=== PATIENT | female | born 1930 | race Caucasian/White ===

== ENCOUNTER → 2016-11-08 | Outpatient (CLI) | payer OTHER | LOC: CIMAGING 17:23 | PROVIDERS: ATTEND Internal Medicine Rheumatology | DX: J84.10 Pulmonary fibrosis, unspecified (principal); J98.4 Other disorders of lung | CPT/HCPCS: 71020-PO ==

== ENCOUNTER → 2016-11-29 | Outpatient (CLI) | payer OTHER | LOC: FIMAGING 14:38 | PROVIDERS: ATTEND Psychiatry & Neurology Neurology | DX: G30.1 Alzheimer's disease with late onset (principal); F02.80 Dementia in other diseases classified elsewhere, unspecified severity, without behavioral disturbance, psychotic disturbance, mood disturbance, and anxiety ==

== ENCOUNTER 2016-12-31 11:25 | Emergency (ER) | payer OTHER ==
--- NOTE | 2016-12-31 11:41 | UCPHY ---
H & P Time Seen by Provider: 12/31/16 11:41 Patient Type: New HPI/ROS: CHIEF COMPLAINT: Foot and ankle pain on the right HISTORY OF PRESENT ILLNESS: Fell on Saturday injuring right foot and ankle. Able to walk on it but painful. REVIEW OF SYSTEMS: No other injuries, a dose of bruising on the foot up to the ankle. No change in chronic respiratory symptoms. Not coughing and no chest pain. PAST MEDICAL HISTORY: Pulmonary fibrosis, hypertension, pacemaker with atrial flutter, Sjogren's and thyroid disease. Social history: Nonsmoker General Appearance: Alert and conversant, cooperative. Patient speaks in full sentences. Bruising over most of the foot extending up to the ankle. Tender laterally over 5th metatarsal in the right foot and over the lateral malleolus. Normal range of motion of the knee and the patient is ambulatory. Normal dorsalis pedis pulse and normal motor and sensory in the foot. No lacerations. Emergency Department course/MDM: X-rays reviewed with the patient and daughter. Boot placed. She is warned to follow up with her livestock breeder this week because of incidental hypoxemia noted on vital signs. However I do not think this requires emergent workup as she does not have any new symptoms over her baseline. Ambulatory as tolerated with orthopedic follow-up. Constitutional: Initial Vital Signs Temperature (C) 36.7 C 12/31/16 11:29 Heart Rate 77 12/31/16 11:29 Respiratory Rate 16 12/31/16 11:29 Blood Pressure 121/87 H 12/31/16 11:29 O2 Sat (%) 81 L 12/31/16 11:29 O2 Delivery Mode Nasal Cannula O2 (L/minute) 2 Allergies/Adverse Reactions: No Known Allergies Allergy (Verified 12/31/16 11:43) Home Medications: Medication Instructions Recorded Aspirin 12/31/16 Atorvastatin Calcium 12/31/16 Digoxin 12/31/16 Fosamax 10 MG 12/31/16 Glucosamine 12/31/16 Lexapro 12/31/16 Miralax 17 gm (*) 12/31/16 Prednisone 12/31/16 Synthroid 12/31/16 Toprol Xl 100 mg (*) 12/31/16 VITAMIN D 12/31/16 MDM/Departure - MDM Imaging Results: Right foot x-ray personally interpreted shows dancer's or Esteban fracture on the 5th metatarsal. Right ankle shows distal fibular fracture. Imaging: I viewed and interpreted images myself - Depart Disposition: Home, Routine, Self-Care Clinical Impression: Fracture of fifth metatarsal bone of right foot Qualifiers: Encounter type: initial encounter Fracture type: closed Fracture alignment: nondisplaced Qualified Code(s): S92.354A - Nondisplaced fracture of fifth metatarsal bone, right foot, initial encounter for closed fracture Condition: Good Instructions: Ankle Fracture (ED), Foot Fracture in Adults (ED) Additional Instructions: Wear boot at all times except when in the shower. Please follow up with Orthopedics within the next 1-2 weeks. Activity as tolerated. Please touch base with your livestock breeder Dr. Turner this week because your baseline oxygen saturations are in the 80s. Referrals: Chaya Mendoza MD [Primary Care Provider] - As per Instructions Juan M Mendoza MD [Medical Doctor] - As per Instructions - PQRS PQRS Measurement: 134: Depression screening and followup, PRIME MD-PHQ2 (12 years and older) Over the last 2 weeks, how often have you been bothered by any of the following problems? 1. Feeling down, depressed, or hopeless? 2. Little interest or pleasure in doing things? Patient answered no to both 1 and 2 130: Documentation of medications. Reviewed all patient medications, doses, route and frequency. 226: Do you smoke? No. 47: 65 and older: Advanced care planning. Patient designates surrogate decision maker as daughter. 51: 18 years old and older with diagnosis of COPD, spirometry performance. Patient has no history of COPD 52: 18 years old and older with COPD and symptoms of COPD or FEV1<60% predicted prescribed a B Agonist. Does not have history of COPD.
[2016-12-31 11:44] VITALS: TEMP 98.1
[2016-12-31 12:50] VITALS: BP 127/90; PULSE 74; RESP 18; O2SAT 99
== END 2016-12-31 12:40 | disposition home or self-care (01) ==
LOC: CED 11:25
DX: S92.351A Displaced fracture of fifth metatarsal bone, right foot, initial encounter for closed fracture (principal); S82.61XA Displaced fracture of lateral malleolus of right fibula, initial encounter for closed fracture; W19.XXXA Unspecified fall, initial encounter
CPT/HCPCS: 73610; 73630; G0463; 99203-PO

== ENCOUNTER → 2017-01-22 | Outpatient (CLI) | payer OTHER | LOC: CIMAGING 17:36 | PROVIDERS: ATTEND Internal Medicine Rheumatology | DX: J84.9 Interstitial pulmonary disease, unspecified (principal); Z95.0 Presence of cardiac pacemaker | CPT/HCPCS: 71020-PO ==

== ENCOUNTER → 2017-02-04 | Outpatient (CLI) | payer OTHER | LOC: BHFA 16:15 | PROVIDERS: ATTEND Internal Medicine Cardiovascular Disease | DX: R06.02 Shortness of breath (principal) ==

== ENCOUNTER → 2017-02-05 | Outpatient (CLI) | payer OTHER | LOC: CIMAGING 14:14 | PROVIDERS: ATTEND Internal Medicine Pulmonary Disease | DX: J84.9 Interstitial pulmonary disease, unspecified (principal); M35.00 Sjogren syndrome, unspecified | CPT/HCPCS: 71250-PO; 99000-PO ==